=== PATIENT | male | born 1960 | race Caucasian/White ===

== ENCOUNTER → 2019-06-10 09:59 | Outpatient (CLI) | payer OTHER ==
[2019-06-13 10:09] LABS: ANA REFLEX - DIRECT Negative (Negative)
[2019-06-13 11:09] LABS: ANGIOTENSIN CONVERTING ENZYME 8 U/L (14-82)
== END | disposition home or self-care (01) ==
LOC: D.LAB 09:59
PROVIDERS: ATTEND Internal Medicine Pulmonary Disease
DX: R91.8 Other nonspecific abnormal finding of lung field (principal); J44.9 Chronic obstructive pulmonary disease, unspecified